=== PATIENT | male | born 1960 | race Caucasian/White ===

== ENCOUNTER 2017-07-13 13:53 | Emergency (ER) | payer SELFPAY ==
[~2017-07-13] VITALS: Ht 165.1 cm; Wt 70.5 kg
[2017-07-13 14:48] VITALS: BP 132/90
== END 2017-07-13 16:34 | disposition home or self-care (01) ==
LOC: EMS 14:04
DX: L84 Corns and callosities (principal); L03.115 Cellulitis of right lower limb; I10 Essential (primary) hypertension
CPT/HCPCS: 99283